=== PATIENT | male | born 1980 | race Caucasian/White ===

== ENCOUNTER → 2016-09-07 | Outpatient (CLI) | payer OTHER ==
--- NOTE | 2016-09-07 12:32 | Diagnostic Imaging Report ---
PROCEDURE: CT head without contrast. TECHNIQUE: Multiple contiguous axial images were obtained through the brain without the use of intravenous contrast. INDICATION: Fall. Syncope. FINDINGS: There is no intracranial hemorrhage, edema, or mass effect. The brain parenchyma and hart-white matter differentiation is preserved. No hydrocephalus. No extra-axial fluid collection is seen. The calvarium and orbits appear grossly unremarkable. There is partial opacification of the ethmoid air cells mostly in the posterior right ethmoidal cells seen. IMPRESSION: 1. No intracranial abnormality. 2. Opacified posterior right ethmoid air cells. Dictated by: Dictated on workstation # [id number]
== END ==
LOC: RAD 11:41
PROVIDERS: ATTEND Nurse Practitioner Family
DX: R55 Syncope and collapse (principal)
CPT/HCPCS: 70450

== ENCOUNTER 2018-07-26 19:32 | Emergency (ER) | payer SELFPAY ==
[~2018-07-26] VITALS: Ht 180.3 cm; Wt 106.6 kg
[2018-07-26] MEDS ORDERED: NS IV 1000 ML 1,000 ML IV SCH ×2 (19:50)
[2018-07-26] MEDS ORDERED: LORazepam INJ 2 MG/ML (ATIVAN) VIAL IVP ONE (20:00)
[2018-07-26 21:01] LABS: BASOPHILS % (AUTO) 0 % (0-10); EOSINOPHILS # (AUTO) 0.3 10^3/uL (0.0-0.3); EOSINOPHILS % (AUTO) 2 % (0-10); HEMATOCRIT 45 % (40-54); LYMPHOCYTES # (AUTO) 1.8 X 10^3 (1.0-4.0); LYMPHOCYTES % (AUTO) 11 % (12-44); MEAN CORPUSCULAR HEMOGLOBIN 29 PG (25-34); MEAN CORPUSCULAR HGB CONC 34 G/DL (32-36); MEAN CORPUSCULAR VOLUME 87 FL (80-99); MEAN PLATELET VOLUME 9.9 FL (7.4-10.4); MONOCYTES # (AUTO) 1.4 X 10^3 (0.0-1.0); MONOCYTES % (AUTO) 8 % (0-12); NEUTROPHILS # (AUTO) 12.9 X 10^3 (1.8-7.8); NEUTROPHILS % (AUTO) 79 % (42-75); PLATELET COUNT 299 10^3/uL (130-400); WHITE BLOOD COUNT 16.4 10^3/uL (4.3-11.0)
[2018-07-26 21:05] LABS: INR 0.9 (0.8-1.4); PROTHROMBIN TIME PATIENT 12.8 SEC (12.2-14.7)
[2018-07-26 21:15] LABS: ALANINE AMINOTRANSFERASE 19 U/L (0-55); ALKALINE PHOSPHATASE 53 U/L (40-136); BILIRUBIN,TOTAL 0.2 MG/DL (0.1-1.0); BUN/CREATININE RATIO 11; CARBON DIOXIDE 20 MMOL/L (21-32); CHLORIDE 103 MMOL/L (98-107); CREATININE SERUM 1.07 MG/DL (0.60-1.30); GFR ESTIMATED > 60; GLUCOSE 89 MG/DL (70-105); POTASSIUM 4.3 MMOL/L (3.6-5.0); SODIUM 135 MMOL/L (135-145); TOTAL PROTEIN 6.8 GM/DL (6.4-8.2)
[2018-07-26] MEDS ORDERED: fentaNYL INJECTION 100 MCG/2 ML AMP IVP ONE (21:15)
[2018-07-26] MEDS ORDERED: LIDOCAINE 1% INJ 20 ML 20 ML VIAL INJ ONE (21:15)
[2018-07-26 21:31] LABS: LYMPHOCYTES % (MANUAL) 13 %; MONOCYTES % (MANUAL) 11 %; NEUTROPHILS % (MANUAL) 76 %
[2018-07-26 21:32] LABS: RBC MORPH NORMAL
--- NOTE | 2018-07-26 21:36 | ED General ---
General Chief Complaint: General Problems/Pain Stated Complaint: BOTH ARM SORES, NAUSEA, FEVER, WEAK Nursing Triage Note: PT REPORTS SEEN AT [facility] FOR MULTIPLE ABSCESSES, DENIES IMPROVEMENT AFTER SEVERAL DAYS OF ABX. REPORTS WENT BACK TODAY FOR RE-EVALUATION BUT THEY WERE CLOSED. REPORTS ELEVATED TEMP, INCREASED SWELLING OF WOUNDS ET FATIGUE. Nursing Sepsis Screen: No Definite Risk Source of Information: Patient Exam Limitations: No Limitations History of Present Illness Date Seen by Provider: Jul 26, 2018 Time Seen by Provider: 20:53 Initial Comments 37-year-old male who presents to emergency room with complaints of abscesses to bilateral arms. He has a large abscess to his left arm that is draining purulent drainage and a second abscess to his right arm. He reports shaving his arms and noticing a pimple starting that he tried to squeeze returned and abscesses. He reports fevers. Associated Systoms: Fever/Chills Allergies and Home Medications Allergies Coded Allergies: No Known Drug Allergies (Unverified , 07/26/18) Home Medications Cephalexin 500 Mg Tablet, 500 MG PO QID Prescribed by: MEGAN FLOWERS on 07/26/182137 Hydrocodone Bit/Acetaminophen 1 Tab Tab, 1 EACH PO Q4-6HR PRN for PAIN-MODERATE Prescribed by: MEGAN FLOWERS on 07/26/182137 Patient Home Medication List Home Medication List Reviewed: Yes Review of Systems Review of Systems Constitutional: see HPI; No chills, No fever Skin: see HPI, other (abscessed arms bilaterally) All Other Systems Reviewed Negative Unless Noted: Yes Past Eregmin-Bctzjk-Ehotmq Hx Past Med/Social Hx: Reviewed Nursing Past Med/Soc Hx Patient Social History Alcohol Use: Denies Use Recreational Drug Use: No Smoking Status: Former Smoker Recent Foreign Travel: No Contact w/Someone Who Travel: No Recent Infectious Disease Expo: No Recent Hopitalizations: No Seasonal Allergies Seasonal Allergies: No Past Medical History Surgeries: No Respiratory: No Cardiac: No Neurological: No Genitourinary: No Gastrointestinal: No Musculoskeletal: No Endocrine: No HEENT: No Cancer: No Psychosocial: No Integumentary: No Blood Disorders: No Family Medical History Reviewed Nursing Family Hx Physical Exam Vital Signs Vital Signs - First Documented 07/26/18 19:39 Temp 99.4 Pulse 105 Resp 18 B/P (MAP) 140/99 (113) Pulse Ox 97 O2 Delivery Room Air Capillary Refill : Less Than 3 Seconds Height, Weight, BMI Height: 5'11.00" Weight: 235lbs. oz. 106.242096gs; BMI Method:Stated General Appearance: No Apparent Distress, WD/WN Respiratory: Chest Non Tender, Lungs Clear, Normal Breath Sounds, No Accessory Muscle Use, No Respiratory Distress Cardiovascular: Regular Rate, Rhythm, No Edema, No Gallop, No JVD, No Murmur, Normal Peripheral Pulses Extremity: Normal Capillary Refill Neurologic/Psychiatric: Alert, Oriented x3, Normal Mood/Affect Skin: Normal Color, Warm/Dry, Other (abscess to left upper arm that is 3 cm in diameter with a 1 cm in diameter area of fluctuation with central punctum that is draining purulent drainage. There is a 1 cm in diameter area of erythema to the right arm that has no area of fluctuation.) Focused Exam Lactate Level 07/26/18 20:13: Lactic Acid Level 1.12 Lactic Acid Level Procedures/Interventions I&D : Blade Size: 11 I & D Procedure: betadine prep, sterile drapes applied Progress The abscess on the left arm was anesthetized size with lidocaine 1% without epinephrine. A small incision was made with 11 blade scalpel. Large amounts of purulent drainage was expressed. The wound was left open to drain and a loose sterile dressing was applied. Progress/Results/Core Measures Suspected Sepsis Recent Fever Within 48 Hours: No Infection Criteria Present: Suspected New Infection New/Unexplained Altered Menta: No Sepsis Screen: No Definite Risk SIRS Temperature:99.4 Pulse: 105 Respiratory Rate: 18 Laboratory Tests 07/26/18 20:13: White Blood Count 16.4H Blood Pressure 140 /99 Mean: 113 07/26/18 20:13: Lactic Acid Level 1.12 Laboratory Tests 07/26/18 20:13: Creatinine 1.07, INR Comment 0.9, Platelet Count 299, Total Bilirubin 0.2 Results/Orders Lab Results Laboratory Tests Test 07/26/18 20:13 Range/Units White Blood Count 16.4 H 4.3-11.0 10^3/uL Red Blood Count 5.14 4.35-5.85 10^6/uL Hemoglobin 15.0 13.3-17.7 G/DL Hematocrit 45 40-54 % Mean Corpuscular Volume 87 80-99 FL Mean Corpuscular Hemoglobin 29 25-34 PG Mean Corpuscular Hemoglobin Concent 34 32-36 G/DL Red Cell Distribution Width 13.0 10.0-14.5 % Platelet Count 299 130-400 10^3/uL Mean Platelet Volume 9.9 7.4-10.4 FL Neutrophils (%) (Auto) 79 H 42-75 % Lymphocytes (%) (Auto) 11 L 12-44 % Monocytes (%) (Auto) 8 0-12 % Eosinophils (%) (Auto) 2 0-10 % Basophils (%) (Auto) 0 0-10 % Neutrophils # (Auto) 12.9 H 1.8-7.8 X 10^3 Lymphocytes # (Auto) 1.8 1.0-4.0 X 10^3 Monocytes # (Auto) 1.4 H 0.0-1.0 X 10^3 Eosinophils # (Auto) 0.3 0.0-0.3 10^3/uL Basophils # (Auto) 0.0 0.0-0.1 10^3/uL Neutrophils % (Manual) 76 % Lymphocytes % (Manual) 13 % Monocytes % (Manual) 11 % Blood Morphology Comment NORMAL Prothrombin Time 12.8 12.2-14.7 SEC INR Comment 0.9 0.8-1.4 Activated Partial Thromboplast Time 32 24-35 SEC Sodium Level 135 135-145 MMOL/L Potassium Level 4.3 3.6-5.0 MMOL/L Chloride Level 103 98-107 MMOL/L Carbon Dioxide Level 20 L 21-32 MMOL/L Anion Gap 12 5-14 MMOL/L Blood Urea Nitrogen 12 7-18 MG/DL Creatinine 1.07 0.60-1.30 MG/DL Estimat Glomerular Filtration Rate > 60 BUN/Creatinine Ratio 11 Glucose Level 89 70-105 MG/DL Lactic Acid Level 1.12 0.50-2.00 MMOL/L Calcium Level 9.0 8.5-10.1 MG/DL Corrected Calcium 9.0 8.5-10.1 MG/DL Total Bilirubin 0.2 0.1-1.0 MG/DL Aspartate Amino Transf (AST/SGOT) 20 5-34 U/L Alanine Aminotransferase (ALT/SGPT) 19 0-55 U/L Alkaline Phosphatase 53 40-136 U/L Total Protein 6.8 6.4-8.2 GM/DL Albumin 4.0 3.2-4.5 GM/DL Micro Results Microbiology 07/26/18 Blood Culture - Preliminary, Resulted No growth 07/26/18 Blood Culture - Preliminary, Resulted No growth My Orders Orders - MEGAN FLOWERS Cbc With Automated Diff (07/26/18 20:53) Comprehensive Metabolic Panel (07/26/18 20:53) Blood Culture (07/26/18 20:53) Protime With Inr (07/26/18 20:53) Partial Thromboplastin Time (07/26/18 20:53) Ed Iv/Invasive Line Start (07/26/18 20:53) Ed Iv/Invasive Line Start (07/26/18 20:53) Vital Signs Adult Sepsis Patie Q15M (07/26/18 20:53) O2 (07/26/18 20:53) Remove Rings In Anticipation O (07/26/18 20:53) Wound Culture (07/26/18 20:53) Lactic Acid Analyzer (07/26/18 20:53) Manual Differential (07/26/18 20:13) Fentanyl Injection (Sublimaze Injection (07/26/18 21:15) Lidocaine 1% Inj 20 Ml (Xylocaine 1% Inj (07/26/18 21:15) Ceftriaxone For Iv Use (Rocephin For I (07/26/18 21:45) Hydrocodone/Apap 7.5/325 Tab (Lortab 7. (07/26/18 21:45) Medications Given in ED Vital Signs/I&O Capillary Refill : Less Than 3 Seconds Blood Pressure Mean: 113 Departure Impression Primary Impression: Skin abscess Disposition: 01 HOME, SELF-CARE Condition: Stable/Unchanged Departure-Patient Inst. Decision time for Depature: 21:35 Referrals: NO,LOCAL PHYSICIAN (PCP/Family) Primary Care Physician Patient Instructions: Skin Abscess Add. Discharge Instructions: Continue your Bactrim pills and cream. Take pain medication as needed. Change dressings daily. Follow-up with your primary care provider within 1 week for recheck. Return back to the emergency room for worsening symptoms or concerns as needed. All discharge instructions reviewed with patient and/or family. Voiced understanding. Scripts Hydrocodone Bit/Acetaminophen (Hydrocodone/Acetaminophen 5/325mg Tablet) 1 Tab Tab 1 EACH PO Q4-6HR PRN for PAIN-MODERATE MDD 10 for 3 Days, #14 TAB Prov: MEGAN FLOWERS 07/26/18 Cephalexin (Cephalexin) 500 Mg Tablet 500 MG PO QID for 7 Days, #28 TAB 0 Refills Prov: MEGAN FLOWERS 07/26/18 MEGAN FLOWERS Jul 26, 2018 21:36
[2018-07-26] MEDS ORDERED: CEPH500T PO (21:38)
[2018-07-26] MEDS ORDERED: ACHD5005 PO (21:38)
[2018-07-26] MEDS ORDERED: cefTRIAXone FOR IV USE 1,000 MG in WATER (STERILE) FOR INJECTION 10 ML IV ONE (21:45)
[2018-07-26] MEDS ORDERED: HYDROcodone/APAP 7.5 MG/325 MG (LORTAB, LORCET PLUS) TABLET PO ONE (21:45)
[2018-07-26 22:11] VITALS: BP 124/87
== END 2018-07-26 22:03 | disposition home or self-care (01) ==
LOC: EDUNIT# 19:32 → ER 19:35
DX: L02.413 Cutaneous abscess of right upper limb (principal); L02.414 Cutaneous abscess of left upper limb; Z87.891 Personal history of nicotine dependence
CPT/HCPCS: 36415; 80053; 83605; 85007; 85027; 85610; 85730; 87040; 87070; 87077; 87186; 87205; 96374; 96375

== ENCOUNTER → 2020-04-21 | Outpatient (CLI) | payer OTHER ==
[~2020-04-21] MED LIST: ACHD5005 PO; CEPH500T PO
--- NOTE | 2020-04-21 16:50 | Diagnostic Imaging Report ---
INDICATION: Hip pain, right greater than left. AP pelvis, AP and oblique views of both hips are obtained. No fracture or acute bony abnormality is seen. The SI joints appear symmetric and unremarkable. The hip joint spaces show no significant joint space narrowing. There is a small calcification adjacent to the right superolateral acetabulum which appears to be chronic. There appears to be chronic avulsion off the lesser trochanter on the right side. There is mild spurring of the lesser trochanter of the left side. There is some chronic appearing irregularity of the right pubic bone near the symphysis, likely from old trauma. IMPRESSION: Chronic changes as described above with no acute appearing abnormality. Dictated by: Dictated on workstation # [id number]
== END ==
LOC: RAD 14:55
PROVIDERS: ATTEND Internal Medicine
DX: M76.892 Other specified enthesopathies of left lower limb, excluding foot (principal); M25.551 Pain in right hip
CPT/HCPCS: 73523

== ENCOUNTER 2021-04-12 14:41 | Outpatient (CLI) | payer BC, OTHER | END 2021-04-12 14:57 | LOC: SLEEP 14:41 | PROVIDERS: ATTEND Nurse Practitioner | DX: G47.33 Obstructive sleep apnea (adult) (pediatric) (principal) | CPT/HCPCS: G0399 ==

== ENCOUNTER → 2021-09-01 | Outpatient (CLI) | payer BC ==
--- NOTE | 2021-09-01 12:34 | Diagnostic Imaging Report ---
PROCEDURE: US left lower extremity venous. TECHNIQUE: Multiple real-time grayscale images were obtained over the left lower extremity in various projections. Additional duplex Doppler and color Doppler images were also obtained. INDICATION: Left leg swelling EXAMINATION: Grayscale and color Doppler evaluation of the deep veins of the left lower extremity were performed with waveform analysis. FINDINGS: Continuous venous flow is present. No intraluminal filling defect is identified. There is normal compressibility and response to augmentation. No abnormal perivascular fluid collection is identified. IMPRESSION: No ultrasound evidence of left lower extremity deep venous thrombosis. Dictated by: Dictated on workstation # [id number]
== END ==
LOC: RAD 12:00
PROVIDERS: ATTEND Nurse Practitioner Family
DX: M79.89 Other specified soft tissue disorders (principal)